=== PATIENT | female | born 1990 | race Caucasian/White ===

== ENCOUNTER 2016-08-08 15:33 | Outpatient (CLI) | payer OTHER | END 2016-08-08 15:34 | disposition home or self-care (01) | DX: M50.222 Other cervical disc displacement at C5-C6 level (principal); M50.320 Other cervical disc degeneration, mid-cervical region, unspecified level; M51.26 Other intervertebral disc displacement, lumbar region; M47.816 Spondylosis without myelopathy or radiculopathy, lumbar region; M51.36 Other intervertebral disc degeneration, lumbar region ==

== ENCOUNTER 2016-11-11 21:14 | Emergency (ER) | payer OTHER ==
[2016-11-11] MEDS ORDERED: DEXAMETHASONE 10 MG/ML VIAL PO STA (21:39)
[2016-11-11] MEDS ORDERED: HYDROcod/ACET 5/325 Prepack 6 PO ONE ×2 (21:39→21:40)
[2016-11-11] MEDS ORDERED: KETOROLAC 60 MG/2 ML VIAL IM STA (21:39)
[2016-11-11] MEDS ORDERED: DEXAMETHASONE 10 MG/ML VIAL ONE (21:40)
[2016-11-11] MEDS ORDERED: KETOROLAC 60 MG/2 ML VIAL ONE (21:40)
== END 2016-11-11 22:21 | disposition home or self-care (01) ==
DX: G44.209 Tension-type headache, unspecified, not intractable (principal)